=== PATIENT | female | born 1995 | race African-American/Black ===

== ENCOUNTER 2017-04-13 02:03 | Emergency (ER) | payer OTHER ==
[2017-04-13] MEDS ORDERED: IBUPROFEN 400 MG TABLET (FP) PO ONE ×2 (02:17→02:20)
--- NOTE | 2017-04-13 02:20 | PDOC ---
History of Present Illness - General Chief Complaint: Pain, Acute Stated Complaint: CEILING FELL ON UPPER BACK Time Seen by Provider: 04/13/17 02:20 - History of Present Illness Initial Comments: 04/13/17 04:04 ceiling fell on back while sleeping reports localized pain worse when she presses area has not taken anythign for pain fhx: noncontributory ros: reviewed and otherwise negative Past History - Past Medical History Allergies/Adverse Reactions: Allergies Allergy/AdvReac Type Severity Reaction Status Date / Time No Known Allergies Allergy Verified 04/13/17 02:04 Home Medications: Ambulatory Orders NK [No Known Home Medication] 04/13/17 Other medical history: DENIES - Psycho/Social/Smoking Cessation Hx Anxiety: No Suicidal Ideation: No Smoking History: Never smoked Have you smoked in the past 12 months: No Information on smoking cessation initiated: No Hx Alcohol Use: Yes (SOCIAL) Drug/Substance Use Hx: No Substance Use Type: None *Physical Exam - Vital Signs Last Vital Signs Temp Pulse Resp BP Pulse Ox 98.7 F 90 16 129/89 98 04/13/17 02:07 04/13/17 02:07 04/13/17 02:07 04/13/17 02:07 04/13/17 02:07 - Physical Exam General Appearance: Yes: Nourished, Appropriately Dressed HEENT: positive: Normal ENT Inspection Neck: negative: Tender Respiratory/Chest: positive: Lungs Clear Cardiovascular: positive: Regular Rhythm, Regular Rate Gastrointestinal/Abdominal: positive: Normal Bowel Sounds. 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
[2017-04-13 02:25] VITALS: BP 129/89; PULSE 90; TEMP 98.7; BMI 32.5
== END 2017-04-13 02:23 | disposition home or self-care (01) ==
LOC: FER 02:03 → SUPCPDRO 02:03 → FER 02:23
DX: T14.90 Injury, unspecified (principal); W20.1XXA Struck by object due to collapse of building, initial encounter; Y93.84 Activity, sleeping; Y92.003 Bedroom of unspecified non-institutional (private) residence as the place of occurrence of the external cause
CPT/HCPCS: 99281-25